=== PATIENT | female | born 1960 | race Caucasian/White ===

== ENCOUNTER 2025-03-29 21:35 | Emergency (ER) | payer BC, OTHER ==
[~2025-03-29 21:35] MED LIST: Iopamidol 370 76% 100 ML VIAL ONE
[2025-03-29 22:05] LABS: INR-International Normal Ratio 1.0; Prothrombin Time 12.8 sec (12.0-14.7)
[2025-03-29] MEDS ORDERED: Aspirin Chewable 81 MG TAB ONE (22:05)
[2025-03-29 22:06] LABS: Hematocrit 41.4 % (36.0-47.0); Hemoglobin 12.9 g/dL (12.0-16.0); MDiff Complete? YES; Mean Corpuscular Hemoglobin 27.7 pg (27.0-31.0); Mean Corpuscular Volume 88.8 fl (78.0-98.0); PTT 30.9 sec (22.9-36.1); Platelet Count 388 10x3/uL (130-400); Red Blood Cell (RBC) Count 4.66 mill/uL (4.20-5.40); White Blood Cell (WBC) Count 5.7 10x3/uL (4.8-10.8)
[2025-03-29 22:16] LABS: ALT (SGPT) 16 U/L (Less than 34); AST (SGOT) 29 U/L (11-34); Albumin 4.0 g/dL (3.1-4.5); Alkaline Phosphatase 83 U/L (40-110); Anion Gap 18 mmol/L (10-20); BUN (Urea Nitrogen) 16 mg/dL (9.8-20.1); Bilirubin, Total 0.3 mg/dL (0.3-1.2); Calc. Creatinine Clearance 0 mL/min (70-130); Calcium 9.2 mg/dL (7.8-10.44); Carbon Dioxide 22 mmol/L (23-31); Chloride 101 mmol/L (98-107); Globulin 3.2 g/dL (2.4-3.5); Glucose 123 mg/dL (80-115); Potassium 4.3 mmol/L (3.5-5.1); Sodium 137 mmol/L (136-145)
[2025-03-29 22:17] LABS: Troponin I 0.012 ng/mL (< 0.028)
[2025-03-29 22:30] LABS: Glucose, Urine (Dipstick) Negative (Negative); Leukocyte Negative (Negative); Protein, Urine (Dipstick) Negative (Neg-Trace); Specific Gravity, Urine 1.015 (1.005-1.030)
[2025-03-29 22:31] LABS: Bacteria/HPF Rare-Few HPF (None Seen); CAUTI Indications for Culture Alt mental st,lethar; RBC/HPF 0-3 HPF (0-3); Urine Culture Reflex No No; WBC/HPF 0-3 HPF (0-3)
== END 2025-03-29 22:53 | disposition short-term general hospital (02) ==
LOC: MADERS 21:35
DX: I63.9 Cerebral infarction, unspecified (principal); E11.9 Type 2 diabetes mellitus without complications; I10 Essential (primary) hypertension; E03.9 Hypothyroidism, unspecified; Z79.890 Hormone replacement therapy; Z79.899 Other long term (current) drug therapy
CPT/HCPCS: 70450; 70496; 70498; 71045; 80053; 81001; 82962; 84484; 85025; 85610; 85730; 93005; 94760; J2270; 36416; 96374; Q9967